=== PATIENT | male | born 1960 | race Caucasian/White ===

== ENCOUNTER 2020-05-07 09:53 | Emergency (ER) | payer OTHER ==
[~2020-05-07] VITALS: Ht 180.3 cm; Wt 110.0 kg
--- NOTE | 2020-05-07 10:57 | NUR ---
CC/O RINGING IN LT EAR. STARTED 4 DAYS AGO W/ MIGRAINE. DENIES MCMILLAN CURRENTLY. FELL OUT OF OFFICE CHAIR 05/05/20 AFTER FEELING A LITTLE DIZZY.
--- NOTE | 2020-05-07 11:09 | NUR ---
DR CRAIN AT . PT ABLE TO SPEAK IN COMPLETE SENTENCES. STATES HE FELL BACKWARDS ONTO SHOULDER ON 05/05/20. STATES MCMILLAN "WAS REALLY BAD" DENIES HX MIGRAINE, FREQUENT MCMILLAN.
[2020-05-07] MEDS ORDERED: BYSTOLIC (11:12)
[2020-05-07] MEDS ORDERED: NEBI5TAB3 PO (11:19)
[2020-05-07 12:00] VITALS: BP 152/98
== END 2020-05-07 13:17 | disposition home or self-care (01) ==
LOC: ED 10:39
DX: H93.12 Tinnitus, left ear (principal); I10 Essential (primary) hypertension; R51.9 Headache, unspecified
CPT/HCPCS: 70450; 99284

== ENCOUNTER → 2020-08-19 | Outpatient (CLI) | payer OTHER ==
[~2020-08-19] MED LIST: BYSTOLIC; NEBI5TAB3 PO
== END | disposition home or self-care (01) ==
LOC: CFH 09:43
PROVIDERS: ATTEND Internal Medicine Cardiovascular Disease
DX: I35.8 Other nonrheumatic aortic valve disorders (principal); I11.9 Hypertensive heart disease without heart failure; I48.0 Paroxysmal atrial fibrillation; Z86.711 Personal history of pulmonary embolism
CPT/HCPCS: 78452; 93017; 93306; A9502